=== PATIENT | female | born 1990 | race Two or more races ===

== ENCOUNTER 2018-02-23 15:42 | Emergency (ER) | payer MEDICAID ==
[~2018-02-23] VITALS: Ht 172.7 cm; Wt 99.8 kg
[2018-02-23 16:53] LABS: Basophils # (auto) 0 uL; Basophils % (auto) 0.2 % (0.0-2.0); Eosinophils # (auto) 0 uL; Hemoglobin 13.5 g/dL (12.2-16.2); Lymphocytes % (auto) 9.7 % (10.0-50.0); Monocytes # (auto) 0.4 uL; Neutrophils # (auto) 8.7 uL
[2018-02-23 16:54] LABS: Eosinophils % (auto) 0.3 % (0.0-7.0); Hematocrit 39.8 % (36.0-46.0); Mean Corpuscular Hemoglobin 26.9 pg (28.0-32.0); Mean Corpuscular Hgb Conc. 33.8 g/dL (32.0-36.0); Mean Corpuscular Volume 79.5 fL (80.0-100.0); Monocytes % (auto) 4.3 % (0.0-12.0); Neutrophils % (auto) 85.5 % (37.0-80.0); Nucleated Red Blood Cells % 0.1 %; Platelet Count (auto) 277 10^3/uL (140-450); Red Blood Cells 5.01 10^6/uL (4.0-5.20); Red Cell Distribution Width 14.6 % (11.8-14.3); White Blood Cell 10.2 10^3/uL (4.4-10.8)
[2018-02-23 17:08] LABS: Albumin 4.2 g/dL (3.4-5.0); Calcium 9.3 mg/dL (8.5-10.1); Potassium 3.6 mmol/L (3.5-5.1)
[2018-02-23 17:10] LABS: BUN/Creatinine Ratio 17.1
[2018-02-23 17:13] LABS: Bilirubin, Total 2.4 mg/dL (0.2-1.0); Total Protein 8.5 g/dL (6.4-8.2)
[2018-02-23 19:31] LABS: Urine Bacteria NONE SEEN /hpf (None Seen); Urine Blood Negative /uL (Negative); Urine Specific Gravity 1.031 (1.001-1.035); Urine WBC 1 /hpf (0 - 5)
[2018-02-23 20:05] VITALS: BP 133/87
== END 2018-02-23 21:07 | disposition home or self-care (01) ==
LOC: ER 15:42
DX: K80.20 Calculus of gallbladder without cholecystitis without obstruction (principal)
CPT/HCPCS: 36415; 76705; 80053; 81001; 83690; 85025; 94761

== ENCOUNTER 2019-06-01 04:21 | Inpatient (IN) | payer MEDICAID ==
[2019-06-01] VITALS (12 sets, daily range): BP systolic 100–148; BP diastolic 55–86
[~2019-06-01] VITALS: Ht 172.7 cm; Wt 120.2 kg
[2019-06-01] MEDS ORDERED: LACTATED RINGER'S 1,000 ML IV SCH (05:31)
[2019-06-01] MEDS ORDERED: LACT. RINGERS/OXYTOCIN 20UNITS 1,000 ML IV SCH ×2 (05:31→09:09)
[2019-06-01] MEDS ORDERED: LIDOCAINE 1% (LOCAL ANESTH.) PF 5ml SDV IJ ONE (05:45)
[2019-06-01] MEDS ORDERED: PHISODERM TOP SOLN 240ML BTL TOP PRN (05:45)
[2019-06-01] MEDS ORDERED: PENICILLIN G POT 5MIL/D5 50ML 50 ML IV ONE ×2 (05:45→05:52)
[2019-06-01] MEDS ORDERED: CARBOPROST TROMETHAMINE 250 MCG/1ML VIAL IM PRN ×2 (05:45→08:15)
[2019-06-01] MEDS ORDERED: METHYLERGONOVINE MALEATE 0.2 MG/ML AMP IM PRN (05:45)
[2019-06-01] MEDS ORDERED: LACT. RINGERS/OXYTOCIN 20UNITS 1,000 ML IV ONE (05:53)
[2019-06-01] MEDS ORDERED: LIDOCAINE 2%HCL (LOCAL ANESTH.) INJ 20ML MDV ONE (06:12)
[2019-06-01] MEDS: DERMOPLAST 60ML BOTTLE TOP PRN (06:17)
[2019-06-01] MEDS: WITCH HAZEL-GLYCERIN PAD TOP PRN (06:17)
[2019-06-01 06:38] LABS: Basophils # (auto) 0 10 ^3/uL (0-0.2); Basophils % (auto) 0.2 % (0.0-2.0); Eosinophils # (auto) 0 10 ^3/uL (0-0.8); Eosinophils % (auto) 0.2 % (0.0-7.0); Hemoglobin 12.1 g/dL (12.2-16.2); Lymphocytes # (auto) 2.4 10 ^3/uL (0.4-5.4); Neutrophils # (auto) 9.5 10 ^3/uL (1.6-8.6)
[2019-06-01 06:39] LABS: Hematocrit 36.8 % (36.0-46.0); Mean Corpuscular Hemoglobin 25.2 pg (28.0-32.0); Mean Corpuscular Volume 76.5 fL (80.0-100.0); Monocytes # (auto) 0.6 10 ^3/uL (0-1.3); Monocytes % (auto) 4.8 % (0.0-12.0); Neutrophils % (auto) 75.8 % (37.0-80.0); Platelet Count (auto) 219 10^3/uL (140-450); Red Blood Cells 4.81 10^6/uL (4.0-5.20); Red Cell Distribution Width 17.7 % (11.8-14.3); White Blood Cell 12.5 10^3/uL (4.4-10.8)
[2019-06-01 06:55] LABS: Albumin 2.8 g/dL (3.4-5.0); BUN/Creatinine Ratio 19.3; Calcium 9.1 mg/dL (8.5-10.1); INR 0.99 (0.9-1.15); Partial Thromboplastin Time 32.5 sec (23.64-32.05); Potassium 3.6 mmol/L (3.5-5.1)
[2019-06-01 06:57] LABS: Bilirubin, Total 0.7 mg/dL (0.2-1.0); Total Protein 7.9 g/dL (6.4-8.2)
[2019-06-01] MEDS ORDERED: DIPHENOXYLATE W/ATROPINE 2.5 MG TAB ONE (07:36)
[2019-06-01] MEDS ORDERED: ONDANSETRON HCL 4 MG/2 ML VIAL ONE (07:36)
[2019-06-01] MEDS ORDERED: ceFAZolin 1GM/50ML 50 ML IV ONE (07:36)
[2019-06-01] MEDS ORDERED: LACT. RINGERS/OXYTOCIN 20UNITS 500 ML IV ONE (08:09)
[2019-06-01] MEDS ORDERED: NALBUPHINE HCL 10 MG/1ml INJECTION IV PRN (08:15)
[2019-06-01] MEDS ORDERED: PROMETHAZINE HCL 25 MG/ML 1ML IV PRN (08:15)
[2019-06-01] MEDS ORDERED: DIPHENOXYLATE W/ATROPINE 2.5 MG TAB PO PRN (08:15)
[2019-06-01] MEDS ORDERED: METHYLERGONOVINE MALEATE 0.2 MG/ML AMP IM ONE (08:15)
[2019-06-01] MEDS ORDERED: ONDANSETRON HCL 4 MG/2 ML VIAL IV PRN (08:15)
[2019-06-01] MEDS ORDERED: BUTORPHANOL TARTRATE 2 MG/1 ML VIAL IM ONE (09:00)
[2019-06-01] MEDS ORDERED: BUTORPHANOL TARTRATE 2 MG/1 ML VIAL IV ONE (09:30)
[2019-06-01] MEDS ORDERED: PENICILLIN G POTASSIUM 2,500,000 UNITS in D5W 5% 50 ML IV SCH (09:45)
[2019-06-01 11:33] LABS: Urine WBC None Seen /hpf (0 - 5)
[2019-06-01 11:45] LABS: Urine Bacteria NONE SEEN /hpf (None Seen); Urine Blood 2+ /uL (Negative); Urine Specific Gravity 1.013 (1.001-1.035)
[2019-06-01 11:57] LABS: Alcohol, Urine < 3.0 mg/dL (0-5); Amphetamine Screen, Urine NEGATIVE (NEGATIVE); Barbiturate Scree,Urine NEGATIVE (NEGATIVE); Benzodiazephine Screen, Urine NEGATIVE (NEGATIVE); Cannabinoid Screen, Urine NEGATIVE (NEGATIVE); Cocaine Screen, Urine NEGATIVE (NEGATIVE); Opiate Scree,Urine NEGATIVE (NEGATIVE); Phencyclidine Screen, Urine NEGATIVE (NEGATIVE)
--- NOTE | 2019-06-01 12:05 | NUR ---
Dr. Infante called by this RN. Update given to include, VS trends, fundal and lochia checks, and hourly urine output. Orders received to start orders to include PO medications, regular diet, and pt may ambulate to the chair.
[2019-06-01] MEDS ORDERED: IBUPROFEN 600 MG TAB PO PRN (12:15)
--- NOTE | 2019-06-01 12:28 | NUR ---
Ambulation: Keely care and catheter care performed, new keely pad and underwear placed on pt. Fundus and lochia assessed prior to ambulation. Pt assisted to side of bed to dangle, VS taken and stable. Pt denies dizziness. Patient OOB with standby assistance by RN to chair. Patient ambulated to chair with steady gait. Clean gown provided and bed linen changed. No signs of distress or discomfort noted. .
[2019-06-01] MEDS ORDERED: miSOPROStol 100 mcg TAB PO ONE (14:05)
[2019-06-01] MEDS ORDERED: PREN-96 PO (14:46)
--- NOTE | 2019-06-01 15:49 | NUR ---
Dr. Infante called by this RN and informed of VS Trends, fundal and lochia assessments, and urine output. Orders received to d/c Godoy catheter at this time.
[2019-06-01] MEDS ORDERED: ceFAZolin 1GM/50ML 50 ML IV SCH (16:00)
--- NOTE | 2019-06-01 16:12 | NUR ---
Child catheter dc'd Order to discontinue child catheter. Child dc'd with clean technique following deflation of balloon. Patient tolerated well with no complaints of pain. Continue care. Kathe CARR at bedside Signed: 06/01/19 at 1615 by KRISTI SOLIS SN <Co-Signature Required> Co-Signed: 06/01/19 at 1615 by Meg Boyd RN
--- NOTE | 2019-06-01 18:21 | NUR ---
Report given to Valentina Mayer RN on stable pt. Relinquished care. Addendum: 06/01/19 at 1831 by Meg Boyd RN Amended: Links added.
--- NOTE | 2019-06-01 19:30 | NUR ---
Ambulation: Patient OOB with standby assistance by RN. Patient ambulated to bathroom with steady gait. Patient able to void 400ML without difficulty. Pericare teaching provided with returned demonstration by patient. Clean gown provided. Patient ambulated back to bed with steady gait and no distress noted.
[2019-06-02 02:46] VITALS: BP 130/63
[2019-06-02 04:06] LABS: RPR Non Reactive (Non Reactive)
--- NOTE | 2019-06-02 06:15 | NUR ---
Report received from Valentina Mayer RN on stable pt. Assumed care. Addendum: 06/02/19 at 0630 by Meg Boyd RN Amended: Links added.
[2019-06-02 06:41] VITALS: BP 120/65
[2019-06-02 10:39] VITALS: BP 110/54
--- NOTE | 2019-06-02 11:58 | NUR ---
PT REPORT RECEIVED FROM Riya MATHEWS RN ON STABLE PATIENT, ASSUMING CARE. NO DISTRESS NOTED.
--- NOTE | 2019-06-02 11:58 | NUR ---
Report given to Umer Sargent RN on stable pt. Relinquished care.
[2019-06-02] MEDS ORDERED: ceFAZolin 1GM/50ML 50 ML IV SCH ×2 (14:00)
[2019-06-02] MEDS: WITCH HAZEL-GLYCERIN PAD TOP PRN (14:32)
[2019-06-02] MEDS: DERMOPLAST 60ML BOTTLE TOP PRN (14:32)
[2019-06-02 15:00] VITALS: BP 122/57
[2019-06-02 18:48] VITALS: BP 121/59
--- NOTE | 2019-06-02 20:25 | NUR ---
Dr. Infante calls unit, updated on patient status. Per Dr Infante she is familiar with patient, vitals signs reviewed, informed patient has received 2 doses of Ancef 1g. Per Dr Infante discontinue Ancef 1g q8hrs. Orders will be followed.
[2019-06-02 22:54] VITALS: BP 132/78
[2019-06-03 02:40] VITALS: BP 101/55
[2019-06-03 06:44] VITALS: BP 109/62
--- NOTE | 2019-06-03 07:10 | NUR ---
IV removal IV 20 g in left forearm discontinued with clean sterile technique, catheter fully intact. Pressure dressing applied to site. Patient tolerated well.
[2019-06-03 10:00] VITALS: BP 109/62
--- NOTE | 2019-06-03 10:15 | NUR ---
Discharge: Discharge instructions given as ordered. Pt encouraged to follow up with IMPREGNATOR OPERATOR as instructed. All questions and concerns addressed. Patient verbalized understanding. Medication reconciliation completed and copy given to patient. All required/requested vaccines given and copies of vaccinations given to patient. Patient encouraged to prepare to depart unit.
--- NOTE | 2019-06-03 10:15 | NUR ---
Discharge: Discharge instructions given to mother of baby as ordered. Copies of and hearing screening, along with vaccination record given to mother. Mother encouraged to follow up with Production [facility]er of choice and to give envelope with infants information to tube molder fiberglass at 1st office visit. All questions and concerns addressed. Mother of baby verbalized understanding and agreed to comply. Mother of baby encouraged to prepare for departure and notify RN ready to leave room for ID band removal/verification and car seat check.
--- NOTE | 2019-06-03 10:32 | NUR ---
Discharge: Patient taken to vehicle via ambulation with all personal belongings, accompanied by staff and family member. No distress noted at time of departure, no adverse changes in status since initial assessment.
== END 2019-06-03 10:32 | disposition home or self-care (01) | DRG 560 ==
LOC: LDRP 04:21 → OBSVTOIN 05:05 → LDRP 05:14
PROVIDERS: ADMIT Obstetrics & Gynecology; ATTEND Obstetrics & Gynecology
PROC: 10E0XZZ Delivery of Products of Conception, External Approach (ICD-10-PCS; principal; 2019-06-01)
PROC: 0KQM0ZZ Repair Perineum Muscle, Open Approach (ICD-10-PCS; 2019-06-01)
DX: O99.824 Streptococcus B carrier state complicating childbirth (principal); Z37.0 Single live birth; Z3A.39 39 weeks gestation of pregnancy; O70.1 Second degree perineal laceration during delivery
CPT/HCPCS: 36415; 51702; 59025; 59409; 80053; 80307; 81001; 81002; 84112; 85025; 85610; 85730; 86592; 86703; 86762; 86850; 86900; 86901; 87340; 96361; 96366; 96372; 96374; 96375; G0378; J0690; J2405; J2540; J2590; J7060

== ENCOUNTER 2023-01-07 21:25 | Observation (INO) | payer MEDICAID ==
[~2023-01-07] VITALS: Ht 172.7 cm; Wt 127.0 kg
[~2023-01-07 21:25] MED LIST: PREN-96 PO
[2023-01-07] MEDS ORDERED: LACTATED RINGER'S 1,000 ML IV SCH (22:00)
[2023-01-07] MEDS ORDERED: LACTATED RINGER'S 1,000 ML IV ONE (22:00)
[2023-01-07 23:11] LABS: COVID19 ANTIGEN SOFIA FIA POSITIVE (NEGATIVE)
[2023-01-07 23:12] LABS: Rapid Influenza A Negative (Negative); Rapid Influenza B Negative (Negative)
== END 2023-01-07 22:35 | disposition home or self-care (01) ==
LOC: LDRP 21:25
PROVIDERS: ADMIT Obstetrics & Gynecology; ATTEND Obstetrics & Gynecology
DX: O98.513 Other viral diseases complicating pregnancy, third trimester (principal); U07.1 COVID-19; O99.891 Other specified diseases and conditions complicating pregnancy; M54.9 Dorsalgia, unspecified; O26.893 Other specified pregnancy related conditions, third trimester; R51.9 Headache, unspecified; R50.9 Fever, unspecified; O21.2 Late vomiting of pregnancy; Z3A.32 32 weeks gestation of pregnancy; Z79.899 Other long term (current) drug therapy
CPT/HCPCS: 36415; 59025; 87426; 87804; 94760; 96360; G0378

== ENCOUNTER 2023-01-07 22:40 | Emergency (ER) | payer MEDICAID ==
[~2023-01-07] VITALS: Ht 172.7 cm; Wt 130.0 kg
[2023-01-07] MEDS ORDERED: ACETAMINOPHEN 500 MG TAB PO ONE (23:00)
[2023-01-07 23:18] LABS: Basophils # (auto) 0 10 ^3/uL (0-0.2); Eosinophils # (auto) 0 10 ^3/uL (0-0.8); Hemoglobin 10.4 g/dL (12.2-16.2); Lymphocytes # (auto) 0.3 10 ^3/uL (0.4-5.4); Monocytes # (auto) 0.4 10 ^3/uL (0-1.3)
[2023-01-07 23:22] LABS: Basophils % (auto) 0.2 % (0.0-2.0); Hematocrit 31.2 % (36.0-46.0); Lymphocytes % (auto) 4.3 % (10.0-50.0); Mean Corpuscular Hemoglobin 24.4 pg (28.0-32.0); Mean Corpuscular Hgb Conc. 33.4 g/dL (32.0-36.0); Mean Corpuscular Volume 73.1 fL (80.0-100.0); Monocytes % (auto) 5.5 % (0.0-12.0); Neutrophils # (auto) 6.8 10 ^3/uL (1.6-8.6); Red Blood Cells 4.26 10^6/uL (4.0-5.20); Red Cell Distribution Width 16.1 % (11.8-14.3); White Blood Cell 7.5 10^3/uL (4.4-10.8)
[2023-01-07 23:44] LABS: Alanine Aminotransferase 19 U/L (7-40); Albumin 3.9 g/dL (3.2-4.8); Alkaline Phosphatase 103 U/L (46-116); Anion Gap 10 (5-15); Aspartate Aminotransferase 93 U/L (13-40); Bilirubin, Total 1.4 mg/dL (0.2-1.0); Calcium 8.7 mg/dL (8.7-10.4); Carbon Dioxide 18 mmol/L (20-30); Chloride 104 mmol/L (98-107); Glucose 98 mg/dL (74-106); Potassium 3.5 mmol/L (3.5-5.1); Sodium 132 mmol/L (136-145); Total Protein 6.6 g/dL (5.7-8.2)
[2023-01-07 23:49] LABS: BUN/Creatinine Ratio 9.1 (10.0-20.0); Blood Urea Nitrogen < 5 mg/dL (9-23)
[2023-01-08] VITALS: PULSE 115; RESP 20; O2SAT 97
[2023-01-08 01:17] LABS: Urine Bacteria FEW /hpf (None Seen); Urine Blood Negative /uL (Negative); Urine Clarity Clear (Clear); Urine Color Yellow (Yellow); Urine Protein, UAD Negative (Negative); Urine Specific Gravity 1.008 (1.001-1.035); Urine Urobilinogen Normal (Negative); Urine WBC 1 /hpf (0 - 5); Urine pH 6.5 (5.0-8.0)
[2023-01-08] MEDS ORDERED: ALBUTEROL SULF 2.5 MG/0.5ML(0.5%) NEB SOLN NEB ONE ×2 (05:45)
[2023-01-08] MEDS ORDERED: DexAMETHasone SOD PHOS 10MG/1ML VIAL INJ IV ONE (05:45)
[2023-01-08] MEDS ORDERED: ALBUTEROL MEDNEB 2.5 mg/3ml NEB ONE (05:46)
[2023-01-08 07:40] VITALS: PULSE 78; RESP 18; O2SAT 96
[2023-01-08 10:41] LABS: Rapid Influenza A Negative (Negative); Rapid Influenza B Negative (Negative)
[2023-01-08 16:22] VITALS: BP 113/47; PULSE 97; RESP 20; TEMP 98; O2SAT 97
== END 2023-01-08 05:34 | disposition short-term general hospital (02) ==
LOC: ER 22:40
DX: O98.513 Other viral diseases complicating pregnancy, third trimester (principal); R10.2 Pelvic and perineal pain; U07.1 COVID-19; O99.513 Diseases of the respiratory system complicating pregnancy, third trimester; J45.909 Unspecified asthma, uncomplicated; Z3A.32 32 weeks gestation of pregnancy
CPT/HCPCS: 36415; 71045; 80053; 81001; 83605; 84484; 84702; 85025; 87040; 87804; 93005; 94640; 96374; 99291; J1100

== ENCOUNTER 2023-02-19 01:01 | Inpatient (IN) | payer MEDICAID ==
[~2023-02-19] VITALS: Ht 172.7 cm; Wt 125.0 kg
[2023-02-19] VITALS (21 sets, daily range): BP systolic 105–155; BP diastolic 55–68; PULSE 78–98; RESP 14–24; TEMP 98.5–98.7; O2SAT 90–100
[2023-02-19] MEDS ORDERED: LACTATED RINGER'S 1,000 ML IV SCH (01:15)
[2023-02-19] MEDS ORDERED: LACTATED RINGER'S 1,000 ML IV ONE (01:15)
[2023-02-19] MEDS ORDERED: PENICILLIN G POT 5MIL/D5 50ML 50 ML IV ONE (01:30)
[2023-02-19] MEDS ORDERED: METHYLERGONOVINE MALEATE 0.2 MG/ML AMP IM PRN (01:30)
[2023-02-19] MEDS ORDERED: PROMETHAZINE HCL 25 MG/ML 1ML IV PRN (01:30)
[2023-02-19] MEDS ORDERED: miSOPROStol 100 mcg TAB PR PRN (01:30)
[2023-02-19] MEDS ORDERED: DERMOPLAST 60ML BOTTLE TOP PRN (01:30)
[2023-02-19] MEDS ORDERED: WITCH HAZEL-GLYCERIN PAD TOP PRN (01:30)
[2023-02-19] MEDS ORDERED: miSOPROStol 100 mcg TAB SL PRN (01:30)
[2023-02-19] MEDS ORDERED: PHISODERM TOP SOLN 240ML BTL TOP PRN (01:30)
[2023-02-19] MEDS ORDERED: LACT. RINGERS/OXYTOCIN 20UNITS 500 ML IV ONE ×2 (01:30→02:00)
[2023-02-19] MEDS ORDERED: LIDOCAINE 2%HCL (LOCAL ANESTH.) INJ 20ML MDV IJ PRN (01:30)
[2023-02-19] MEDS ORDERED: BUTORPHANOL TARTRATE 2 MG/1 ML VIAL IV PRN ×2 (01:30)
[2023-02-19 01:50] LABS: Basophils # (auto) 0 10 ^3/uL (0-0.2); Eosinophils # (auto) 0 10 ^3/uL (0-0.8); Eosinophils % (auto) 0.1 % (0.0-7.0); Lymphocytes # (auto) 0.7 10 ^3/uL (0.4-5.4); Monocytes # (auto) 0.3 10 ^3/uL (0-1.3)
[2023-02-19 01:51] LABS: Basophils % (auto) 0.7 % (0.0-2.0); Hematocrit 41.3 % (36.0-46.0); Hemoglobin 13.4 g/dL (12.2-16.2); Lymphocytes % (auto) 15.3 % (10.0-50.0); Mean Corpuscular Hgb Conc. 32.5 g/dL (32.0-36.0); Monocytes % (auto) 6.5 % (0.0-12.0); Neutrophils # (auto) 3.3 10 ^3/uL (1.6-8.6); Neutrophils % (auto) 77.4 % (37.0-80.0); Nucleated Red Blood Cells % 0.3 %; Red Blood Cells 5.36 10^6/uL (4.0-5.20); White Blood Cell 4.3 10^3/uL (4.4-10.8)
[2023-02-19 02:05] LABS: INR 1.17 (0.9-1.15); Partial Thromboplastin Time 46.7 SEC (24.5-34.5); Prothrombin Time 12.2 sec (9.3-11.8)
[2023-02-19 02:18] LABS: Red Cell Distribution Width 20.9 % (11.8-14.3)
[2023-02-19 02:46] LABS: Alanine Aminotransferase 319 U/L (7-40); Albumin 3.9 g/dL (3.2-4.8); Alkaline Phosphatase 297 U/L (46-116); Anion Gap 14 (5-15); Aspartate Aminotransferase 970 U/L (13-40); BUN/Creatinine Ratio 14.6 (10.0-20.0); Bilirubin, Total 3.3 mg/dL (0.2-1.0); Blood Urea Nitrogen 13 mg/dL (9-23); Calcium 8.4 mg/dL (8.7-10.4); Carbon Dioxide 16 mmol/L (20-30); Chloride 99 mmol/L (98-107); Glucose 88 mg/dL (74-106); Potassium 3.6 mmol/L (3.5-5.1); Sodium 129 mmol/L (136-145); Total Protein 6.9 g/dL (5.7-8.2)
[2023-02-19] MEDS ORDERED: MAGNESIUM SULFATE 40MG/ML 1,000 ML IV SCH (03:15)
[2023-02-19] MEDS ORDERED: MAGNESIUM SULFATE 100 ML IV ONE (03:15)
[2023-02-19] MEDS ORDERED: LORazepam 2MG/ML-1ML VIAL IV ONE (03:15)
[2023-02-19 03:23] LABS: COVID19 ANTIGEN SOFIA FIA NEGATIVE (NEGATIVE); Rapid Influenza A Negative (Negative); Rapid Influenza B Negative (Negative)
[2023-02-19] MEDS ORDERED: CARBOPROST TROMETHAMINE 250 MCG/1ML VIAL IM ONE (03:48)
[2023-02-19 05:02] LABS: Protein, Urine 61.5 mg/dL (0.0-11.9)
[2023-02-19 05:03] LABS: Amphetamine Screen, Urine Neg (NEGATIVE); Barbiturate Scree,Urine Neg (NEGATIVE); Benzodiazephine Screen, Urine Neg (NEGATIVE); Cocaine Screen, Urine Neg (NEGATIVE); Opiate Scree,Urine Neg (NEGATIVE)
[2023-02-19 05:04] LABS: Cannabinoid Screen, Urine Neg (NEGATIVE); Creatinine, Urine 106.38 mg/dL (30.0-125.0); Phencyclidine Screen, Urine Neg (NEGATIVE); Urine Protein/Creatinine Ratio 0.58
[2023-02-19 05:23] LABS: Urine Bacteria NONE SEEN /hpf (None Seen); Urine Blood Negative /uL (Negative); Urine Clarity Clear (Clear); Urine Color Yellow (Yellow); Urine Protein, UAD 1+ (Negative); Urine WBC 4 /hpf (0 - 5)
[2023-02-19] MEDS ORDERED: PENICILLIN G POTASSIUM 2,500,000 UNITS in D5W 5% 50 ML IV SCH (05:30)
[2023-02-19] MEDS: hydrALAZINE HCL 20 MG/ML VL IV PRN ×3 (05:53→06:50)
[2023-02-19] MEDS: LACTATED RINGER'S 1,000 ML IV SCH ×3 (09:30→22:53)
[2023-02-19] MEDS: IPRATROPIUM BROM 0.5 MG/2.5ML INH SOL NEB PRN ×2 (10:39→14:55)
[2023-02-19] MEDS: ALBUTEROL SULF 2.5 MG/0.5ML(0.5%) NEB SOLN NEB PRN ×3 (10:39→21:31)
[2023-02-19] MEDS ORDERED: ACETAMINOPHEN 325 MG TAB PO PRN (13:45)
[2023-02-19 14:29] LABS: Chloride 97 mmol/L (98-107); Potassium 3.7 mmol/L (3.5-5.1); Sodium 127 mmol/L (136-145)
[2023-02-19 14:30] LABS: Anion Gap 11 (5-15); Calcium 7.2 mg/dL (8.7-10.4); Carbon Dioxide 19 mmol/L (20-30)
[2023-02-19 14:35] LABS: BUN/Creatinine Ratio 9.5 (10.0-20.0); Blood Urea Nitrogen 10 mg/dL (9-23); Glucose 84 mg/dL (74-106)
[2023-02-19] MEDS ORDERED: methylPREDNISolone SOD SUCC 125 MG/2 ML VL IV ONE (14:45)
[2023-02-19] MEDS: IBUPROFEN 600 MG TAB PO PRN (15:11)
[2023-02-19] MEDS: MAGNESIUM SULFATE 40MG/ML 1,000 ML IV SCH (15:19)
[2023-02-19] MEDS: ceFAZolin 1GM/50ML 50 ML IV SCH ×2 (15:22→22:53)
[2023-02-19] MEDS ORDERED: LORATADINE 10 MG TAB PO ONE (17:45)
[2023-02-19 18:25] LABS: Basophils # (auto) 0 10 ^3/uL (0-0.2); Eosinophils # (auto) 0 10 ^3/uL (0-0.8); Monocytes # (auto) 0.3 10 ^3/uL (0-1.3); Neutrophils # (auto) 4.2 10 ^3/uL (1.6-8.6); White Blood Cell 5.3 10^3/uL (4.4-10.8)
[2023-02-19 18:29] LABS: Basophils % (auto) 0.2 % (0.0-2.0); Hematocrit 42.6 % (36.0-46.0); Lymphocytes # (auto) 0.8 10 ^3/uL (0.4-5.4); Lymphocytes % (auto) 15.6 % (10.0-50.0); Mean Corpuscular Hemoglobin 24.9 pg (28.0-32.0); Mean Corpuscular Hgb Conc. 32.8 g/dL (32.0-36.0); Mean Corpuscular Volume 75.9 fL (80.0-100.0); Monocytes % (auto) 5.6 % (0.0-12.0); Neutrophils % (auto) 78.6 % (37.0-80.0); Nucleated Red Blood Cells % 0.4 %; Red Blood Cells 5.61 10^6/uL (4.0-5.20)
[2023-02-19 18:41] LABS: Red Cell Distribution Width 20.7 % (11.8-14.3)
[2023-02-19] MEDS: IBUPROFEN 800 MG TAB PO SCH (18:55)
[2023-02-19 19:02] LABS: Alanine Aminotransferase 327 U/L (7-40); Albumin 3.5 g/dL (3.2-4.8); Alkaline Phosphatase 274 U/L (46-116); Anion Gap 8 (5-15); Aspartate Aminotransferase 966 U/L (13-40); BUN/Creatinine Ratio 10.1 (10.0-20.0); Blood Urea Nitrogen 11 mg/dL (9-23); Calcium 7.1 mg/dL (8.7-10.4); Carbon Dioxide 21 mmol/L (20-30); Chloride 99 mmol/L (98-107); Glucose 102 mg/dL (74-106); Potassium 3.8 mmol/L (3.5-5.1); Sodium 128 mmol/L (136-145); Uric Acid 10.2 mg/dL (3.1-7.8)
[2023-02-19 19:03] LABS: Bilirubin, Total 2.9 mg/dL (0.2-1.0); Total Protein 6.4 g/dL (5.7-8.2)
[2023-02-19] MEDS ORDERED: AMMONIA 0.33 ML INHALANT IN ONE (20:03)
[2023-02-19 21:02] LABS: Urine Bacteria NONE SEEN /hpf (None Seen); Urine Blood Negative /uL (Negative); Urine Clarity Clear (Clear); Urine Color Colorless (Yellow); Urine Protein, UAD TRACE (Negative); Urine Specific Gravity 1.005 (1.001-1.035); Urine Urobilinogen Normal (Negative); Urine WBC <1 /hpf (0 - 5); Urine pH 6.5 (5.0-8.0)
[2023-02-19 21:17] LABS: Creatinine, Urine 18.89 mg/dL (30.0-125.0); Urine Protein/Creatinine Ratio 1.27
[2023-02-20] VITALS (11 sets, daily range): BP systolic 119–142; BP diastolic 60–89; PULSE 69–86; RESP 16–18; TEMP 97.9–98.1; O2SAT 95–99
[2023-02-20] MEDS: ceFAZolin 1GM/50ML 50 ML IV SCH ×3 (05:39→22:55)
[2023-02-20] MEDS: IBUPROFEN 800 MG TAB PO SCH ×5 (05:47→23:49)
[2023-02-20 06:06] LABS: Rubella Antibodies, IgG 5.73 index (Immune >0.99)
[2023-02-20 07:06] LABS: RPR Non Reactive (Non Reactive)
[2023-02-20] MEDS: LORATADINE 10 MG TAB PO SCH (10:43)
[2023-02-20] MEDS: ALBUTEROL SULF 2.5 MG/0.5ML(0.5%) NEB SOLN NEB PRN (11:00)
[2023-02-20] MEDS: IPRATROPIUM BROM 0.5 MG/2.5ML INH SOL NEB PRN (11:00)
[2023-02-20] MEDS: methylPREDNISolone SOD SUCC 40 MG/ML VL IV SCH (22:55)
[2023-02-20] MEDS: IBUPROFEN 600 MG TAB PO PRN (23:49)
[2023-02-21] VITALS (13 sets, daily range): BP systolic 104–134; BP diastolic 53–84; PULSE 70–93; RESP 18–20; TEMP 97.2–98.4; O2SAT 90–100
[2023-02-21 05:44] LABS: Basophils # (auto) 0 10 ^3/uL (0-0.2); Eosinophils # (auto) 0 10 ^3/uL (0-0.8); Hemoglobin 14.7 g/dL (12.2-16.2); Lymphocytes # (auto) 1.5 10 ^3/uL (0.4-5.4); Mean Corpuscular Hemoglobin 24.8 pg (28.0-32.0); White Blood Cell 6.4 10^3/uL (4.4-10.8)
[2023-02-21 05:47] LABS: Basophils % (auto) 0.4 % (0.0-2.0); Eosinophils % (auto) 0.1 % (0.0-7.0); Hematocrit 44.9 % (36.0-46.0); Lymphocytes % (auto) 23.1 % (10.0-50.0); Mean Corpuscular Hgb Conc. 32.7 g/dL (32.0-36.0); Mean Corpuscular Volume 75.9 fL (80.0-100.0); Monocytes # (auto) 0.6 10 ^3/uL (0-1.3); Monocytes % (auto) 9.1 % (0.0-12.0); Neutrophils # (auto) 4.3 10 ^3/uL (1.6-8.6); Neutrophils % (auto) 67.3 % (37.0-80.0); Nucleated Red Blood Cells % 0.6 %; Red Blood Cells 5.92 10^6/uL (4.0-5.20)
[2023-02-21 05:58] LABS: Alanine Aminotransferase 149 U/L (7-40); Albumin 3.3 g/dL (3.2-4.8); Alkaline Phosphatase 226 U/L (46-116); Anion Gap 8 (5-15); Aspartate Aminotransferase 210 U/L (13-40); Blood Urea Nitrogen 15 mg/dL (9-23); Carbon Dioxide 23 mmol/L (20-30); Chloride 103 mmol/L (98-107); Glucose 186 mg/dL (74-106); Potassium 3.9 mmol/L (3.5-5.1)
[2023-02-21 05:59] LABS: Bilirubin, Total 1.6 mg/dL (0.2-1.0); Total Protein 6.1 g/dL (5.7-8.2)
[2023-02-21 06:01] LABS: Sodium 134 mmol/L (136-145)
[2023-02-21] MEDS: ceFAZolin 1GM/50ML 50 ML IV SCH ×3 (06:19→21:33)
[2023-02-21] MEDS: IBUPROFEN 800 MG TAB PO SCH ×3 (06:19→18:00)
[2023-02-21] MEDS: IPRATROPIUM BROM 0.5 MG/2.5ML INH SOL NEB SCH ×3 (06:43→19:08)
[2023-02-21] MEDS: ALBUTEROL SULF 2.5 MG/0.5ML(0.5%) NEB SOLN NEB SCH ×3 (06:43→19:08)
[2023-02-21] MEDS: AZITHROMYCIN 500MG/ 250ML 250 ML IV SCH (09:03)
[2023-02-21] MEDS: LORATADINE 10 MG TAB PO SCH (09:04)
[2023-02-21] MEDS: methylPREDNISolone SOD SUCC 40 MG/ML VL IV SCH ×2 (09:04→18:04)
[2023-02-21] MEDS: MAGNESIUM SULFATE 40MG/ML 1,000 ML IV SCH (15:00)
[2023-02-21] MEDS ORDERED: IOHEXOL 350 MG/ML 100ML IJ ONE (18:15)
[2023-02-21 18:31] LABS: Lipase 62 U/L (12-53)
[2023-02-21 18:33] LABS: Amylase 38 U/L (30-118)
[2023-02-22] VITALS (14 sets, daily range): BP systolic 120–140; BP diastolic 62–92; PULSE 80–90; RESP 17–20; TEMP 97.7–98.6; O2SAT 90–100
[2023-02-22] MEDS: methylPREDNISolone SOD SUCC 40 MG/ML VL IV SCH ×3 (02:29→17:25)
[2023-02-22 05:29] LABS: Basophils # (auto) 0 10 ^3/uL (0-0.2); Eosinophils # (auto) 0 10 ^3/uL (0-0.8); Hemoglobin 14.1 g/dL (12.2-16.2); Lymphocytes # (auto) 1.8 10 ^3/uL (0.4-5.4)
[2023-02-22 05:32] LABS: Basophils % (auto) 0.2 % (0.0-2.0); Hematocrit 43.6 % (36.0-46.0); Mean Corpuscular Hemoglobin 24.9 pg (28.0-32.0); Mean Corpuscular Hgb Conc. 32.3 g/dL (32.0-36.0); Mean Corpuscular Volume 76.9 fL (80.0-100.0); Monocytes # (auto) 0.9 10 ^3/uL (0-1.3); Neutrophils # (auto) 5.1 10 ^3/uL (1.6-8.6); Neutrophils % (auto) 65.8 % (37.0-80.0); Nucleated Red Blood Cells % 0.3 %; Red Blood Cells 5.66 10^6/uL (4.0-5.20); White Blood Cell 7.8 10^3/uL (4.4-10.8)
[2023-02-22] MEDS: ceFAZolin 1GM/50ML 50 ML IV SCH ×3 (05:33→21:45)
[2023-02-22 05:49] LABS: Alanine Aminotransferase 99 U/L (7-40); Albumin 3.4 g/dL (3.2-4.8); Alkaline Phosphatase 196 U/L (46-116); Aspartate Aminotransferase 90 U/L (13-40); BUN/Creatinine Ratio 21.9 (10.0-20.0); Blood Urea Nitrogen 14 mg/dL (9-23); Calcium 8.5 mg/dL (8.5-10.1); Chloride 105 mmol/L (98-107); Glucose 149 mg/dL (74-106); Sodium 137 mmol/L (136-145)
[2023-02-22 05:50] LABS: Anion Gap 9 (5-15); Carbon Dioxide 23 mmol/L (20-30)
[2023-02-22] MEDS: IBUPROFEN 800 MG TAB PO SCH ×4 (06:00→17:25)
[2023-02-22 06:08] LABS: INR 1.01 (0.9-1.15); Prothrombin Time 10.6 sec (9.3-11.8)
[2023-02-22 06:09] LABS: Red Cell Distribution Width 21.5 % (11.8-14.3)
[2023-02-22] MEDS: ALBUTEROL SULF 2.5 MG/0.5ML(0.5%) NEB SOLN NEB SCH ×3 (07:01→19:01)
[2023-02-22] MEDS: IPRATROPIUM BROM 0.5 MG/2.5ML INH SOL NEB SCH ×3 (07:01→19:01)
[2023-02-22 08:58] LABS: Platelet Estimate Adequate
[2023-02-22 08:59] LABS: Anisocytosis Slight; Hypochromia Moderate
[2023-02-22] MEDS: LACTATED RINGER'S 1,000 ML IV SCH ×5 (09:30→16:50)
[2023-02-22] MEDS: AZITHROMYCIN 500MG/ 250ML 250 ML IV SCH (09:45)
[2023-02-22] MEDS: LORATADINE 10 MG TAB PO SCH (09:45)
[2023-02-22] MEDS: MAGNESIUM SULFATE 40MG/ML 1,000 ML IV SCH (15:00)
[2023-02-23] VITALS (9 sets, daily range): BP systolic 117–139; BP diastolic 62–78; PULSE 70–87; RESP 18–20; TEMP 36.6; O2SAT 91–99
[2023-02-23] MEDS: LACTATED RINGER'S 1,000 ML IV SCH ×2 (01:30→09:30)
[2023-02-23] MEDS: methylPREDNISolone SOD SUCC 40 MG/ML VL IV SCH ×2 (01:38→10:26)
[2023-02-23] MEDS: ceFAZolin 1GM/50ML 50 ML IV SCH ×2 (05:34→14:00)
[2023-02-23] MEDS: IBUPROFEN 800 MG TAB PO SCH ×3 (05:37→12:00)
[2023-02-23] MEDS: IPRATROPIUM BROM 0.5 MG/2.5ML INH SOL NEB SCH ×2 (06:25→12:25)
[2023-02-23] MEDS: ALBUTEROL SULF 2.5 MG/0.5ML(0.5%) NEB SOLN NEB SCH ×2 (06:25→12:25)
[2023-02-23 07:12] LABS: Alanine Aminotransferase 67 U/L (7-40); Alkaline Phosphatase 158 U/L (46-116); Anion Gap 9 (5-15); BUN/Creatinine Ratio 14.5 (10.0-20.0); Blood Urea Nitrogen 8 mg/dL (9-23); Carbon Dioxide 23 mmol/L (20-30); Chloride 105 mmol/L (98-107); Glucose 181 mg/dL (74-106); Lipase 86 U/L (12-53); Potassium 4.1 mmol/L (3.5-5.1); Sodium 137 mmol/L (136-145)
[2023-02-23 07:13] LABS: Albumin 3.2 g/dL (3.2-4.8); Amylase 62 U/L (30-118); Aspartate Aminotransferase 54 U/L (13-40)
[2023-02-23 07:14] LABS: Bilirubin, Total 0.8 mg/dL (0.2-1.0); Total Protein 5.7 g/dL (5.7-8.2)
[2023-02-23] MEDS: LORATADINE 10 MG TAB PO SCH (10:26)
[2023-02-23] MEDS: AZITHROMYCIN 500MG/ 250ML 250 ML IV SCH (10:27)
[2023-02-23] MEDS: IBUPROFEN 600 MG TAB PO PRN (10:33)
[2023-02-23] MEDS ORDERED: IBU600T PO (13:57)
[2023-02-23] MEDS: MAGNESIUM SULFATE 40MG/ML 1,000 ML IV SCH (15:00)
[2023-02-23 19:06] LABS: Treponema pallidum Ab (FTA-Ab) Non Reactive (Non Reactive)
== END 2023-02-23 15:59 | disposition home or self-care (01) | DRG 560 ==
LOC: LDRP 01:01 → OBSVTOIN 01:27 → WEST WING 02-20 21:12
PROVIDERS: ADMIT Obstetrics & Gynecology; ATTEND Nurse Practitioner Family
PROC: 10E0XZZ Delivery of Products of Conception, External Approach (ICD-10-PCS; principal; 2023-02-19)
PROC: 0HQ9XZZ Repair Perineum Skin, External Approach (ICD-10-PCS; 2023-02-19)
DX: O99.52 Diseases of the respiratory system complicating childbirth (principal); Z37.0 Single live birth; J96.01 Acute respiratory failure with hypoxia; O14.95 Unspecified pre-eclampsia, complicating the puerperium; J18.0 Bronchopneumonia, unspecified organism; J45.901 Unspecified asthma with (acute) exacerbation; O13.4 Gestational [pregnancy-induced] hypertension without significant proteinuria, complicating childbirth; Z3A.38 38 weeks gestation of pregnancy; Z20.822 Contact with and (suspected) exposure to COVID-19; O99.214 Obesity complicating childbirth; E66.01 Morbid (severe) obesity due to excess calories; O70.0 First degree perineal laceration during delivery; J06.9 Acute upper respiratory infection, unspecified; J98.11 Atelectasis
CPT/HCPCS: 36415; 59025; 59409; 71045; 71275; 76705; 78582; 80048; 80053; 80307; 81001; 81002; 82150; 82570; 83036; 83690; 83735; 83880; 84156; 84550; 85025; 85384; 85610; 85730; 86592; 86703; 86762; 86850; 86900; 86901; 87340; 87426; 87804; 93306; 94640; 94762; 96360; 96361; 96365; 96366; 96374; 96375; G0378; J0690; J2540; J2590; J7060